=== PATIENT | female | born 1960 | race Caucasian/White ===

== ENCOUNTER → 2017-06-14 | Outpatient (CLI) | payer BC ==
--- NOTE | ~2017-06-14 | MY29 ---
[facility] A Service of [facility] RADIOLOGY TEXT RESULTS PATIENT: AUDIE RODRIGUEZ LOCATION: [facility] : 62 UNIT #: [id number] AGE: [address]: Marianne Hdez MD SEX: F ORDER DR: [id number] [facility] [address] [place], [place] [address] [id number] O MR#: [id number] #: [id number] NAME: AUDIE RODRIGUEZ : 1960 SEX: F STUDY DATE/TIME: 06/14/2017 9:36 UNIT: [facility] ROOM: STUDY DESCRIPTION: MY FADUMO SCREENING W/ CAD BILAT Attending Physician: Marianne Hdez M.D. Ordering Physician: Marianne Hdez M.D. Primary Care Physician: Marianne Hdez M.D. MEDICAL IMAGING REPORT This report is preliminary unless electronic signature is present EXAM Digital screening mammograms 06/14/2017 HISTORY 56-year-old woman, no risk elevation. Annual screen. COMPARISON Mammograms date to 04/25/2006, with most recent 05/18/2015. FINDINGS Digital imaging of each breast was completed utilizing screening protocol. Review includes FDA-approved CAD device. Breast parenchyma remains extremely dense in each breast, reflecting both fibroglandular opacities and parenchymal fibronodularity. There are no suspicious mass characteristics. I see no interval occurring microcalcifications and no suspicious focal architectural disturbance. IMPRESSION Stable benign mammogram. Dense breast parenchyma again noted. Annual screening recommended. Patients over the age of 40 are entered into a reminder system with target due date for the next mammogram. A result letter will also be sent to the patient. BIRADS: 2 Benign Finding Dictated by... Kobe Rodriguez M.D. THIS IS AN ELECTRONICALLY VERIFIED REPORT Kobe Rodriguez M.D. at 06/14/2017 1:47 PM [facility] A Service of [facility] RADIOLOGY TEXT RESULTS PATIENT: AUDIE RODRIGUEZ LOCATION: [facility] : 62 UNIT #: [id number] AGE: [address]: Marianne Hdez MD SEX: F ORDER DR: BANG/dilcia TD: 06/14/2017 13:17 JOB #: [id number] MEDICAL IMAGING REPORT Page 1 of 1 COPY
== END | disposition home or self-care (01) ==
LOC: CWCC 08:52
DX: Z12.31 Encounter for screening mammogram for malignant neoplasm of breast (principal); R92.8 Other abnormal and inconclusive findings on diagnostic imaging of breast
CPT/HCPCS: G0202